=== PATIENT | female | born 1950 | race Asian ===

== ENCOUNTER 2022-12-22 08:23 | Emergency (ER) | payer MEDICARE, OTHER ==
[~2022-12-22] VITALS: Ht 162.6 cm; Wt 67.1 kg
[2022-12-22 08:35] VITALS: BP 146/68; PULSE 70; RESP 18
[2022-12-22] MEDS ORDERED: CLOB0.05 TOP (09:47)
[2022-12-22 09:56] VITALS: O2SAT 95
== END 2022-12-22 09:59 | disposition home or self-care (01) ==
LOC: ER 08:23
DX: L20.9 Atopic dermatitis, unspecified (principal)

== ENCOUNTER 2022-12-24 08:54 | Emergency (ER) | payer MEDICARE ==
[~2022-12-24] VITALS: Ht 165.1 cm; Wt 66.8 kg
[~2022-12-24 08:54] MED LIST: CLOB0.05 TOP
[2022-12-24 11:27] VITALS: BP 134/73; PULSE 72; RESP 20; TEMP 97.2; O2SAT 96
[2022-12-24] MEDS ORDERED: PRED20TA2 PO (11:56)
== END 2022-12-24 11:56 | disposition home or self-care (01) ==
LOC: ER 08:54
DX: R21 Rash and other nonspecific skin eruption (principal); Z88.5 Allergy status to narcotic agent; Z88.8 Allergy status to other drugs, medicaments and biological substances; Z79.899 Other long term (current) drug therapy
CPT/HCPCS: 93005